=== PATIENT | male | born 1985 | race American Indian/Alaskan Native ===

== ENCOUNTER 2021-08-14 09:29 | Emergency (ER) | payer SELFPAY ==
[2021-08-14 10:14] VITALS: BP 124/75
--- NOTE | 2021-08-14 10:21 | Emergency Department Report ---
Chief Complaint: Urogenital-Male Stated Complaint: GENITAL WARTS ON PENIS Time Seen by Provider: 08/14/21 10:16 - HPI History of Present Illness: The patient was evaluated in the emergency department for symptoms described in the history of present illness. He/she was evaluated in the context of the global COVID-19 pandemic, which necessitated consideration that the patient might be at risk for infection with the virus that causes COVID-19. Institutional protocols and algorithms that pertain to the evaluation of patients at risk for COVID-19 are in a state of rapid change based on information released by regulatory bodies including the CDC and federal and state organizations. These policies and algorithms were followed during the patient's care in the emergency department. Please note that these policies, procedures and recommendations changed on a rapid basis. 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 Patient states he has had this before and they did cryosurgery. Patient denies any fever chills no difficulty urinating. - Exam Vital Signs: Vital Signs 08/14/21 10:13 Temperature 98.0 F Pulse Rate 65 Respiratory 20 Rate Blood Pressure 124/75 O2 Sat by Pulse 96 Oximetry Physical Exam: General: Awake, appropriately interactive, no acute distress. Neck: Supple. Full range of motion intact. Cardiovascular: Normal peripheral perfusion. Pulmonary: No respiratory distress. Patient is speaking normally without use of accessory muscles. Skin: No apparent rashes or lesions. Neurological: No facial asymmetry. Speech is clear. Follows commands. Patient is alert and oriented. Musculoskeletal: Full range of motion, no crepitus. Able to bear weight and ambulate without difficulty. Distal neurovascular and motor/sensory function is intact. Psych: Cooperative. Appropriate mood and affect. MSE screening note: Focused history and physical exam performed. 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 Patient states he has had this before and they did cryosurgery. Patient denies any fever chills no difficulty urinating. Patient be referred to a superintendent renting managing and STD clinic. ED Disposition for MSE Disposition: 01 HOME / SELF CARE / HOMELESS Is pt being admited?: No Does the pt Need Aspirin: No Condition: Stable Additional Instructions: No need to follow-up at STD or health department clinic. Can also follow-up with a superintendent renting managing give them a call to see if they are able to do that procedure. Referrals: [facility] [Provider Group] - 3-5 Days [facility] [Outside] - 3-5 Days Time of Disposition: 10:21
== END 2021-08-14 10:43 | disposition home or self-care (01) ==
LOC: ED 09:29
DX: A63.0 Anogenital (venereal) warts (principal)
CPT/HCPCS: 99282